=== PATIENT | male | born 1995 | race Caucasian/White ===

== ENCOUNTER 2020-12-11 19:55 | Emergency (ER) | payer BC, SELFPAY ==
--- NOTE | ~2020-12-11 | XR_ITS ---
EXAMINATION: XR knee LT 3V DATE: 12/11/2020 20:19 INDICATION: Left knee pain and swelling TECHNIQUE: Anteroposterior, oblique and crosstable lateral views of the left knee were obtained COMPARISON: None. FINDINGS: Alignment is normal. No fracture. Small bone island at the medial femoral condyle. No joint effusion /layering lipohemarthrosis. Prepatellar soft tissue swelling. IMPRESSION: 1. Prepatellar soft tissue swelling. Otherwise unremarkable left knee radiographs. Reviewed, dictated and finalized at location A. IMPRESSION: 1. Prepatellar soft tissue swelling. Otherwise unremarkable left knee radiograp hs.
[2020-12-11 20:06] VITALS: BP 135/85; PULSE 90; RESP 18; TEMP 37.1; O2SAT 98
--- NOTE | 2020-12-11 22:48 | ED.GENADULT ---
HPI - General Adult General Chief complaint: Extremity Injury, Lower Stated complaint: knee pain Time Seen by Provider: 12/11/20 22:37 History of Present Illness HPI narrative: Patient is a 25-year-old gentleman who presents the emergency department with chief complaint of left knee pain. 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 Patient denies any specific trauma to the knee states that there is been no redness denies fever denies shortness of breath or chest pain. Review of Systems Review of Systems: A 10 system review of systems was completed on the patient and is negative except for what is stated in the HPI. Nursing and ancillary documentation was reviewed. Exam Narrative: GENERAL: Well-appearing, well-nourished, and in no acute distress. HEAD: Normocephalic, atraumatic. EYES: PERRLA and EOMI. ENT: Nares clear, no rhinorrhea or epistaxis. Mucous membranes moist. NECK: Supple. CHEST: Clear to auscultation. No respiratory distress. HEART: Regular rate and rhythm. No murmur heard. Normal peripheral pulses. ABDOMEN: Soft, nontender, nondistended, normal active bowel sounds. EXTREMITIES: Normal range of motion. No edema. Negative Ryan negative anterior and posterior drawer SKIN: Warm, dry, no rash. NEURO: No focal deficits. Alert and oriented x3. PSYCH: Normal mood and affect. Course Vital Signs Vital signs: Vital Signs Temperature 37.1 C 12/11/20 20:06 Pulse Rate 90 12/11/20 20:06 Respiratory Rate 18 12/11/20 20:06 Blood Pressure 135/85 12/11/20 20:06 Pulse Oximetry 98 12/11/20 20:06 Temperature 37.1 C 12/11/20 20:06 Pulse Rate 90 12/11/20 20:06 Respiratory Rate 18 12/11/20 20:06 Blood Pressure 135/85 12/11/20 20:06 Pulse Oximetry 98 12/11/20 20:06 Medical Decision Making Vital Signs Vital Signs: Vital Signs Temperature 37.1 C 12/11/20 20:06 Pulse Rate 90 12/11/20 20:06 Respiratory Rate 18 12/11/20 20:06 Blood Pressure 135/85 12/11/20 20:06 Pulse Oximetry 98 12/11/20 20:06 Temperature 37.1 C 12/11/20 20:06 Pulse Rate 90 12/11/20 20:06 Respiratory Rate 18 12/11/20 20:06 Blood Pressure 135/85 12/11/20 20:06 Pulse Oximetry 98 12/11/20 20:06 Discharge Plan Discharge Clinical Impression: Left knee sprain Patient Disposition: Home, Self-Care Condition: Stable Instructions: Antibiotic Form, Knee Sprain (ED), Knee Immobilizer (ED) Prescriptions: New meloxicam 15 mg tablet 15 mg PO DAILY Qty: 14 RF: 0 Follow-up/Referrals: PHYSICIAN,[facility] E[facility]MENT SPECIALIST [Primary Care Provider] - Keshav Jurado MD [Physician] - Time of Disposition: 22:50
[2020-12-11] MEDS: MELOXICAM 7.5 MG TABLET 15 MG PO (23:24)
== END 2020-12-12 00:45 | disposition home or self-care (01) ==
LOC: ANHED 22:57
PROVIDERS: Emergency Provider Emergency Medicine
DX: S83.92XA Sprain of unspecified site of left knee, initial encounter (principal); X50.9XXA Other and unspecified overexertion or strenuous movements or postures, initial encounter
CPT/HCPCS: 73562; 99283; A9270